=== PATIENT | female | born 1990 | race Caucasian/White ===

== ENCOUNTER 2021-09-14 13:38 | Emergency (ER) | payer SELFPAY ==
[2021-09-14 13:42] VITALS: TEMP 97.2; BMI 22.3
[2021-09-14] MEDS ORDERED: SODIUM CHLORIDE 1,000 ML IV STA (13:47)
[2021-09-14 14:06] VITALS: BP 100/61; PULSE 47
== END 2021-09-14 14:38 | disposition home or self-care (01) ==
LOC: JERFT 13:38
PROC: 3E0337Z Introduction of Electrolytic and Water Balance Substance into Peripheral Vein, Percutaneous Approach (ICD-10-PCS; principal; 2021-09-14)
DX: R55 Syncope and collapse (principal)
CPT/HCPCS: 87804; 93005; 93010; 99284-25; C9803; U0003; U0005

== ENCOUNTER 2022-02-17 12:38 | Emergency (ER) | payer OTHER | END 2022-02-17 13:21 | disposition home or self-care (01) | LOC: JVIRT 12:38 | DX: R07.0 Pain in throat (principal); Z20.822 Contact with and (suspected) exposure to COVID-19 | CPT/HCPCS: C9803-CS; Q3014-GT; U0003; U0005 ==

== ENCOUNTER 2024-04-14 21:35 | Emergency (ER) | payer OTHER ==
[2024-04-14 21:39] VITALS: RESP 18; BMI 21.6
[2024-04-14 23:02] LABS: EOS % 6.2 % (0-4.5); HEMATOCRIT 39.8 % (32.4-45.2); HEMOGLOBIN 13.6 GM/dL (10.7-15.3); LYMPH % 32.4 % (8-40); MCH 29.8 pg (25.7-33.7); MCHC 34.3 g/dl (32.0-36.0); MEAN PLT VOLUME 7.8 fl (7.5-11.1); MONO % 7.6 % (3.8-10.2); NEUT % 52.8 % (42.8-82.8); PLATELET COUNT 274 10^3/uL (134-434); RBC 4.58 M/mm3 (3.60-5.2); RDW 13.5 % (11.6-15.6); WHITE BLOOD COUNT 6.4 K/mm3 (4.0-10.0)
[2024-04-14 23:32] LABS: POTASSIUM 3.7 mmol/L (3.5-5.1)
[2024-04-14 23:34] LABS: ALBUMIN 4.1 g/dl (3.4-5.0); BLOOD UREA NITROGEN 12.6 mg/dL (7-18); MAGNESIUM 2.1 mg/dL (1.8-2.4)
[2024-04-14 23:38] LABS: CREATININE 0.8 mg/dL (0.55-1.3)
[2024-04-14 23:39] LABS: BILIRUBIN,TOTAL 0.6 mg/dL (0.2-1)
[2024-04-14] MEDS: SODIUM CHLORIDE 1,000 ML IV STA (23:43)
[2024-04-15 00:02] LABS: HCG,QUALITATIVE URINE Negative; PH,URINE 6.5 (5.0-8.0); URINE APPEARANCE CLEAR; URINE BILIRUBIN NEGATIVE (NEGATIVE); URINE COLOR YELLOW; URINE GLUCOSE (UA) NEGATIVE (NEGATIVE); URINE KETONE NEGATIVE (NEGATIVE); URINE LEUK ESTERASE NEGATIVE (NEGATIVE); URINE NITRITE NEGATIVE (NEGATIVE); URINE PROTEIN NEGATIVE (NEGATIVE); URINE UROBILINOGEN 0.2 mg/dL (0.2-1.0)
[2024-04-15] MEDS ORDERED: AMOX TR/POT CLAV 875MG/125MG TABLETS (FP) ONE (00:40)
[2024-04-15] MEDS: AMOX TR/POT CLAV 875MG/125MG TABLETS (FP) PO ONE (00:43)
[2024-04-15 01:07] VITALS: BP 113/65; PULSE 62
== END 2024-04-15 01:15 | disposition home or self-care (01) ==
LOC: JER 21:35
PROC: 3E0337Z Introduction of Electrolytic and Water Balance Substance into Peripheral Vein, Percutaneous Approach (ICD-10-PCS; principal; 2024-04-14)
DX: R42 Dizziness and giddiness (principal); J01.90 Acute sinusitis, unspecified; Z20.822 Contact with and (suspected) exposure to COVID-19
CPT/HCPCS: 0241U-QW; 36415; 70450-TC; 80053; 81003; 82550; 83735; 84443; 84484; 84703; 85025; 87086; 93005; 93010; 99285-25